=== PATIENT | male | born 1960 | race African-American/Black ===

== ENCOUNTER 2016-10-18 11:02 | Inpatient (IN) | payer OTHER ==
[2016-10-18 11:29] VITALS: BMI 35.1
--- NOTE | 2016-10-18 12:39 | HP ---
COWS - Scale Resting Pulse: 0= [place] 80 or Below Sweatin=Flushed/Facial Moisture Restless Observation: 0= Sits Still Pupil Size: 0= Normal to Room Light Bone or Joint Aches: 2= Severe Diffuse Aches Runny Nose/ Eye Tearin= Runny Nose/Eyes GI Upset > 30mins: 2= Nausea/Diarrhea Tremor Observation: 2= Slight Tremor Visible Yawning Observation: 2= >3x During Session Anxiety or Irritability: 2=Irritable/Anxious Goose Flesh Skin: 3=Piloerection COWS Score: 17 Admission ROS S - HPI Chief Complaint: I am here to detox. Allergies/Adverse Reactions: Allergies Allergy/AdvReac Type Severity Reaction Status Date / Time No Known Allergies Allergy Verified 10/18/16 11:45 History of Present Illness: pt is a 56yr old male with a history of heroin dependence seeking detox for treatment. Exam Limitations: No Limitations - Ebola screening Have you traveled outside of the country in the last 21 days: No Have you had contact with anyone from an Ebola affected area: No Have you been sick,other than usual withdrawal symptoms: No Do you have a fever: No - Review of Systems Constitutional: Chills, Night Sweats, Changes in sleep EENT: reports: No Symptoms Reported Respiratory: reports: No Symptoms reported Cardiac: reports: No Symptoms Reported GI: reports: Constipated, Poor Fluid Intake : reports: No Symptoms Reported Musculoskeletal: reports: Joint Pain (shoulder pain/arthritis) Integumentary: reports: Flushing, Sweating Neuro: reports: Tingling Endocrine: reports: Excessive Sweating, Flushing, Intolerance to Cold, Intolerance to Heat Hematology: reports: No Symptoms Reported Psychiatric: reports: Judgement Intact, Mood/Affect Appropiate, Orientated x3, Agitated, Anxious Other Systems: Reviewed and Negative Patient History - Patient Medical History Hx Anemia: No Hx Asthma: Yes Hx Chronic Obstructive Pulmonary Disease (COPD): No Hx Cancer: No Hx Cardiac Disorders: No Hx Congestive Heart Failure: No Hx Hypertension: Yes Hx Hypercholesterolemia: No Hx Pacemaker: No HX Cerebrovascular Accident: No Hx Seizures: No Hx Dementia: No Hx Diabetes: No Hx Gastrointestinal Disorders: No Hx Liver Disease: No Hx Genitourinary Disorders: Yes (UTI on medication) Hx Sexually Transmitted Disorders: No Hx Renal Disease (ESRD): No Hx Thyroid Disease: No Hx Human Immunodeficiency Virus (HIV): No (negative) Hx Hepatitis C: No (negative) Hx Depression: No Hx Suicide Attempt: No (denies) Hx Bipolar Disorder: No Hx Schizophrenia: No - Patient Surgical History Past Surgical History: Yes Hx Neurologic Surgery: No Hx Cataract Extraction: No Hx Cardiac Surgery: No Hx Lung Surgery: No Hx Breast Surgery: No Hx Breast Biopsy: No Hx Abdominal Surgery: No Hx Appendectomy: No Hx Cholecystectomy: No Hx Genitourinary Surgery: No Hx Section: No Hx Orthopedic Surgery: (right inguinal hernia repair in 2009) Hx Hysterectomy: No Anesthesia Reaction: No - PPD History Previous Implant?: Yes Documented Results: Negative w/o proof PPD to be Administered?: Yes - Reproductive History Patient is a Female of Child Bearing Age (11 -55 yrs old): No - Smoking Cessation Smoking history: Current every day smoker Have you smoked in the past 12 months: Yes Aproximately how many cigarettes per day: 4 Hx Chewing Tobacco Use: No Initiated information on smoking cessation: Yes 'Breaking Loose' booklet given: 10/18/16 - Substance & Tx. History Hx Alcohol Use: No Hx Substance Use: Yes Substance Use Type: Cocaine, Heroin Hx Substance Use Treatment: Yes (last detox 2007 [facility]) - Substances Abused Heroin Route: Inhalation Frequency: Daily Amount used: 10 bags Age of first use: 24 Date of Last Use: 10/17/16 Crack Route: Smoking Frequency: Daily Amount used: $100 Age of first use: 24 Date of Last Use: 10/17/16 Family Disease History - Family Disease History Family Disease History: Heart Disease: Mother Admission Physical Exam S - Vital Signs Vital Signs: Vital Signs - 24 hr 10/18/16 11:27 Temperature 97.5 F L Pulse Rate 68 Respiratory 18 Rate Blood Pressure 154/96 - Physical General Appearance: Yes: Nourished, Appropriately Dressed, Mild Distress, Moderate Distress HEENTM: Yes: Hearing grossly Normal, Normal Voice, Nasal Congestion, Rhinorrhea Respiratory: Yes: Lungs Clear, Normal Breath Sounds, No Respiratory Distress Neck: Yes: No masses,lesions,Nodules Breast: Yes: Within Normal Limits Cardiology: Yes: Regular Rhythm, Regular Rate, S1, S2 Abdominal: Yes: Normal Bowel Sounds, Non Tender, Soft Genitourinary: Yes: Within Normal Limits Back: Yes: Normal Inspection Musculoskeletal: Yes: full range of Motion, Gait Steady, Back pain Extremities: Yes: Normal Capillary Refill, Normal Inspection, Non-Tender, Tremors Neurological: Yes: Fully Oriented, Alert, Normal Response Integumentary: Yes: Normal Color Lymphatic: Yes: Within Normal Limits - Diagnostic (1) Opioid dependence with withdrawal Current Visit: Yes Status: Chronic (2) Cocaine dependence, uncomplicated Current Visit: Yes Status: Chronic (3) Nicotine dependence Current Visit: Yes Status: Chronic Qualifiers: Nicotine product type: cigarettes Substance use status: uncomplicated Qualified Code(s): F17.210 - Nicotine dependence, cigarettes, uncomplicated (4) Hypertension Current Visit: Yes Status: Chronic Qualifiers: Hypertension type: essential hypertension Qualified Code(s): I10 - Essential (primary) hypertension (5) UTI (urinary tract infection) Current Visit: Yes Status: Acute Qualifiers: Urinary tract infection type: acute cystitis Hematuria presence: without hematuria Qualified Code(s): N30.00 - Acute cystitis without hematuria (6) H/O hernia repair Current Visit: No Status: Chronic Cleared for Admission [facility] - Detox or Rehab [facility] Level of Care: Medically Managed Detox Regimen/Protocol: Methadone [facility] Breath Alcohol Content Breath Alcohol Content: 0 Urine Drug Screen - Results Drug Screen Negative: No Urine Drug Screen Results: LIZZY-Cocaine, OPI-Opiates
[2016-10-18] MEDS ORDERED: MENTHOL/PHENOL 1 EACH UD MM PRN (12:40)
[2016-10-18] MEDS ORDERED: MAG HYDROX/AL HYDROX/SIMETH 30 ML UNIT-DOSE CUP PO PRN (12:40)
[2016-10-18] MEDS ORDERED: guaiFENesin/D-METHORPHAN HB 10 ML UNIT-DOSE CUPS PO PRN (12:40)
[2016-10-18] MEDS ORDERED: LOPERAMIDE HCL 2 MG CAPSULE PO PRN (12:40)
[2016-10-18] MEDS ORDERED: MAGNESIUM CITRATE 300 ML BOTTLE PO PRN (12:40)
[2016-10-18] MEDS ORDERED: ACETAMINOPHEN 325 MG TABLET (FP) PO PRN (12:40)
[2016-10-18] MEDS ORDERED: P-EPHED 60MG/TRIPROLIDI 2.5MG TABLET PO PRN (12:40)
[2016-10-18] MEDS ORDERED: MAGNESIUM HYDROX 2400MG/30ML ORAL SUSPENSION 30 ML CUP PO PRN (12:40)
[2016-10-18] MEDS ORDERED: NICOTINE POLACRILEX 4 MG GUM BC PRN (12:40)
[2016-10-18] MEDS ORDERED: IBUPROFEN 400 MG TABLET (FP) PO PRN (12:40)
[2016-10-18] MEDS: diazePAM 5 MG TABLET PO PRN ×2 (13:26→17:52)
[2016-10-18] MEDS ORDERED: METHADONE HCL 10 MG TABLET (FOR DETOX USE ONLY) PO ONE ×2 (13:30→23:00)
[2016-10-18 15:50] LABS: HIV 1 & 2 AB NEGATIVE; HIV 1 AGp24 NEGATIVE
[2016-10-18 18:10] LABS: MCH 28.8 pg (25.7-33.7); MCHC 33.3 g/dl (32.0-35.9); MEAN CELL VOLUME 86.3 fl (80-96); MEAN PLT VOLUME 10.3 fl (7.5-11.1); PLATELET COUNT 292 K/MM3 (134-434); RDW 12.9 % (11.9-15.9); WHITE BLOOD COUNT 7.3 K/mm3 (4.0-10.0)
[2016-10-18 18:22] LABS: ALBUMIN 3.5 g/dl (3.4-5.0); ALK PHOS 98 U/L (45-117); ANION GAP 10 (8-16); BILIRUBIN,TOTAL 0.9 mg/dL (0.2-1.0); CALCIUM 9.2 mg/dL (8.5-10.1); CO2 28 mmol/L (21-32); CREATININE 1.5 mg/dL (0.7-1.3); GLUCOSE,RANDOM 82 mg/dL (74-106); SGOT/AST 18 U/L (15-37); SGPT/ALT 25 U/L (12-78); TOT PROT 6.9 g/dl (6.4-8.2)
[2016-10-18] MEDS: METOPROLOL TARTRATE 50 MG TABLET (FP) PO SCH (21:36)
[2016-10-18] MEDS: PATIENT'S OWN MEDICATION (NON-FORMULARY) (Diclofenac Sodium/Misoprostol [Diclofenac-Misopr PO SCH (22:07)
[2016-10-18] MEDS: THIAMINE HCL 100 MG TABLET (FP) PO SCH (22:08)
[2016-10-18] MEDS: PATIENT'S OWN MEDICATION (NON-FORMULARY) (Nitrofurantoin Monohyd/M-Cryst 100 MG) PO SCH (22:08)
[2016-10-18] MEDS: CLOTRIMAZOLE 1% CREAM 15 GM TUBE TP SCH (22:09)
[2016-10-18 22:37] LABS: URINE APPEARANCE CLEAR; URINE BILIRUBIN NEGATIVE (NEGATIVE); URINE BLOOD NEGATIVE (NEGATIVE); URINE COLOR YELLOW; URINE GLUCOSE (UA) NEGATIVE (NEGATIVE); URINE KETONE NEGATIVE (NEGATIVE); URINE LEUK ESTERASE TRACE (NEGATIVE); URINE NITRITE NEGATIVE (NEGATIVE); URINE PROTEIN NEGATIVE (NEGATIVE); URINE UROBILINOGEN NEGATIVE mg/dL (0.2-1.0)
[2016-10-18 23:09] LABS: URINE HYALINE CAST 1 /lpf; URINE MUCUS RARE; URINE RBC 5 /hpf (0-3); URINE WBC 8 /hpf (3-5)
[2016-10-18] MEDS: POTASSIUM CHLORIDE TABS 20 MEQ TABLET.ER (FP) PO SCH (23:52)
[2016-10-19] MEDS: diazePAM 5 MG TABLET PO PRN ×3 (05:55→22:04)
[2016-10-19] MEDS ORDERED: PATIENT'S OWN MEDICATION (NON-FORMULARY) (Losartan/Hydrochlorothiazide [Losartan-Hctz 100- PO SCH (10:00)
[2016-10-19] MEDS ORDERED: METHADONE HCL 10 MG TABLET (FOR DETOX USE ONLY) PO ONE (10:00)
[2016-10-19] MEDS: PATIENT'S OWN MEDICATION (NON-FORMULARY) (Diclofenac Sodium/Misoprostol [Diclofenac-Misopr PO SCH ×2 (10:04→22:05)
[2016-10-19] MEDS: LOSARTAN POTASSIUM 50 MG TABLET (FP) PO SCH (10:04)
[2016-10-19] MEDS: PATIENT'S OWN MEDICATION (NON-FORMULARY) (Nitrofurantoin Monohyd/M-Cryst 100 MG) PO SCH ×2 (10:04→22:05)
[2016-10-19] MEDS: METOPROLOL TARTRATE 50 MG TABLET (FP) PO SCH ×2 (10:05→22:05)
[2016-10-19] MEDS: POTASSIUM CHLORIDE TABS 20 MEQ TABLET.ER (FP) PO SCH ×2 (10:05→22:05)
[2016-10-19] MEDS: PRENATAL VITAMINS W/ FOLIC ACID TABLET (FP) PO SCH (10:06)
[2016-10-19] MEDS: HYDROCHLOROTHIAZIDE 25 MG TABLET (FP) PO SCH (10:06)
[2016-10-19] MEDS: amLODIPine BESYLATE 10 MG TABLET (FP) PO SCH (10:06)
[2016-10-19] MEDS: CLOTRIMAZOLE 1% CREAM 15 GM TUBE TP SCH ×2 (10:08→22:06)
[2016-10-19] MEDS: NICOTINE 14 MG/24 HOURS TOPICAL PATCH TD SCH (10:08)
--- NOTE | 2016-10-19 10:25 | EKG ---
Test Reason : Blood Pressure : / mmHG Vent. Rate : 064 BPM Atrial Rate : 064 BPM P-R Int : 188 ms QRS Dur : 092 ms QT Int : 394 ms P-R-T Axes : 066 020 027 degrees QTc Int : 406 ms NORMAL SINUS RHYTHM POSSIBLE LEFT ATRIAL ENLARGEMENT BORDERLINE ECG NO PREVIOUS ECGS AVAILABLE Confirmed by APARNA LU, SYDNEE ([id number]) on 10/19/2016 10:24:41 AM Referred By: Anthony Lopez Confirmed By:SYDNEE BRAUN MD
[2016-10-19] MEDS ORDERED: LIDOCAINE 5% TOPICAL PATCH TP ONE (11:09)
--- NOTE | 2016-10-19 12:23 | PN ---
[facility] COWS - Scale Resting Pulse: 0= [place] 80 or Below Sweatin= Chills/Flushing Restless Observation: 1= Difficult to Sit Still Pupil Size: 0= Normal to Room Light Bone or Joint Aches: 2= Severe Diffuse Aches Runny Nose/ Eye Tearin= Nasal Congestion GI Upset > 30mins: 2= Nausea/Diarrhea Tremor Observation of Outstretched Hands: 2= Slight Tremor Visible Yawning Observation: 1= 1-2x During Session Anxiety or Irritability: 2=Irritable/Anxious Goose Flesh Skin: 3=Piloerection COWS Score: 15 [facility] Progress Note (SOAP) Subjective: Tremors, Body Aches, H/A, Interrupted sleep, Diarrhea. Objective: PT. A & O X 3, OBSERVED AMBULATING ON UNIT. NO ACUTE DISTRESS. PT. DENIES CHEST PAIN. 10/19/16 12:21 Vital Signs Temperature 96.7 F L 10/19/16 10:02 Pulse Rate 76 10/19/16 10:02 Respiratory Rate 18 10/19/16 10:02 Blood Pressure 149/70 10/19/16 10:02 O2 Sat by Pulse Oximetry (%) Laboratory Tests 10/18/16 10/18/16 10/18/16 12:30 14:00 14:00 WBC 7.3 RBC 4.34 Hgb 12.5 Hct 37.4 MCV 86.3 MCH 28.8 MCHC 33.3 RDW 12.9 Plt Count 292 MPV 10.3 Sodium 142 Potassium 3.4 L Chloride 104 Carbon Dioxide 28 Anion Gap 10 BUN 22 H Creatinine 1.5 H Creat Clearance w eGFR 48.77 Random Glucose 82 Calcium 9.2 Total Bilirubin 0.9 AST 18 ALT 25 Alkaline Phosphatase 98 Total Protein 6.9 Albumin 3.5 Urine Color Urine Appearance Urine pH Ur Specific [place] Urine Protein Urine Glucose (UA) Urine Ketones Urine Blood Urine Nitrite Urine Bilirubin Urine Urobilinogen Urine RBC Urine WBC Hyaline Casts Urine Mucus RPR Titer HIV 1&2 Antibody Screen Negative HIV P24 Antigen Negative 10/18/16 10/18/16 14:00 21:15 WBC RBC Hgb Hct MCV MCH MCHC RDW Plt Count MPV Sodium Potassium Chloride Carbon Dioxide Anion Gap BUN Creatinine Creat Clearance w eGFR Random Glucose Calcium Total Bilirubin AST ALT Alkaline Phosphatase Total Protein Albumin Urine Color Yellow Urine Appearance Clear Urine pH 5.0 Ur Specific [place] 1.025 Urine Protein Negative Urine Glucose (UA) Negative Urine Ketones Negative Urine Blood Negative Urine Nitrite Negative Urine Bilirubin Negative Urine Urobilinogen Negative Urine RBC 5 Urine WBC 8 Hyaline Casts 1 Urine Mucus Rare RPR Titer Nonreactive HIV 1&2 Antibody Screen HIV P24 Antigen LABS NOTED. Assessment: 10/19/16 12:22 WITHDRAWAL SYMPTOMS. Plan: CONTINUE DETOX. REPEAT UA FOR ABNORMAL VALUES (RBC, WBC). REPEAT CMP ON 10/21/2016 FOR ABNORMAL ADMISSION VALUES. D/C MAGNESIUM-CONTAINING MEDS. INCREASE DAILY PO FLUID INTAKE. CONTINUE TO MONITOR BP.
[2016-10-19] MEDS: CYCLOBENZAPRINE HCL 10 MG TABLET (FP) PO PRN (22:05)
[2016-10-19] MEDS: THIAMINE HCL 100 MG TABLET (FP) PO SCH (22:05)
[2016-10-19] MEDS: LIDOCAINE PATCH REMOVAL MC SCH (22:07)
[2016-10-20] MEDS: diazePAM 5 MG TABLET PO PRN ×3 (06:04→22:17)
[2016-10-20] MEDS: CYCLOBENZAPRINE HCL 10 MG TABLET (FP) PO PRN (06:04)
--- NOTE | 2016-10-20 09:15 | PN ---
[facility] CIWA - CIWA Score Nausea/Vomitin-No Nausea/No Vomiting Muscle Tremors: 3 Anxiety: 5 Agitation: 4-Moderately Restless Paroxysmal Sweats: 3 Orientation: 0-Oriented Tacttile Disturbances: 2-Mild Itch/Numbness/Burn Auditory Disturbances: 0-None Visual Disturbances: 0-None Headache: 0-None Present CIWA-Ar Total Score: 17 [facility] Progress Note (SOAP) Subjective: Anxious, Stomach cramping, sweating. Pt. reporting right-sided lower abdominal discomfort with sensations of burning , pain when urinating X approx. 1 year. Pt. also reporting intermittent hematuria during that time. Pt. has history of Inguinal Hernia surgical repair ( 2009). Pt. to be sent to [facility] for further evaluation. SEE FOLLOWING [facility] PROGRESS NOTE. Objective: PT. A & O X 3, OBSERVED AMBULATING ON UNIT. NO ACUTE DISTRESS. PT. DENIES CHEST PAIN. 10/20/16 09:09 Vital Signs Temperature 98 F 10/20/16 05:00 Pulse Rate 75 10/20/16 05:00 Respiratory Rate 20 10/20/16 05:00 Blood Pressure 143/85 10/20/16 05:00 O2 Sat by Pulse Oximetry (%) Laboratory Tests 10/18/16 10/18/16 10/18/16 12:30 14:00 14:00 WBC 7.3 RBC 4.34 Hgb 12.5 Hct 37.4 MCV 86.3 MCH 28.8 MCHC 33.3 RDW 12.9 Plt Count 292 MPV 10.3 Sodium 142 Potassium 3.4 L Chloride 104 Carbon Dioxide 28 Anion Gap 10 BUN 22 H Creatinine 1.5 H Creat Clearance w eGFR 48.77 Random Glucose 82 Calcium 9.2 Total Bilirubin 0.9 AST 18 ALT 25 Alkaline Phosphatase 98 Total Protein 6.9 Albumin 3.5 Urine Color Urine Appearance Urine pH Ur Specific [place] Urine Protein Urine Glucose (UA) Urine Ketones Urine Blood Urine Nitrite Urine Bilirubin Urine Urobilinogen Urine RBC Urine WBC Hyaline Casts Urine Mucus RPR Titer HIV 1&2 Antibody Screen Negative HIV P24 Antigen Negative 10/18/16 10/18/16 14:00 21:15 WBC RBC Hgb Hct MCV MCH MCHC RDW Plt Count MPV Sodium Potassium Chloride Carbon Dioxide Anion Gap BUN Creatinine Creat Clearance w eGFR Random Glucose Calcium Total Bilirubin AST ALT Alkaline Phosphatase Total Protein Albumin Urine Color Yellow Urine Appearance Clear Urine pH 5.0 Ur Specific [place] 1.025 Urine Protein Negative Urine Glucose (UA) Negative Urine Ketones Negative Urine Blood Negative Urine Nitrite Negative Urine Bilirubin Negative Urine Urobilinogen Negative Urine RBC 5 Urine WBC 8 Hyaline Casts 1 Urine Mucus Rare RPR Titer Nonreactive HIV 1&2 Antibody Screen HIV P24 Antigen LABS NOTED. RESULTS OF REPEAT UA PENDING. 10/20/16 09:10 Assessment: 10/20/16 09:10 WITHDRAWAL SYMPTOMS. HYPOKALEMIA. DYSURIA, HEMATURIA. 10/20/16 09:10 Plan: CONTINUE DETOX.
[2016-10-20] MEDS: PRENATAL VITAMINS W/ FOLIC ACID TABLET (FP) PO SCH (09:21)
[2016-10-20] MEDS: PATIENT'S OWN MEDICATION (NON-FORMULARY) (Diclofenac Sodium/Misoprostol [Diclofenac-Misopr PO SCH ×2 (09:21→22:12)
[2016-10-20] MEDS: PATIENT'S OWN MEDICATION (NON-FORMULARY) (Nitrofurantoin Monohyd/M-Cryst 100 MG) PO SCH ×2 (09:21→22:13)
[2016-10-20] MEDS: amLODIPine BESYLATE 10 MG TABLET (FP) PO SCH (09:22)
[2016-10-20] MEDS: LOSARTAN POTASSIUM 50 MG TABLET (FP) PO SCH (09:22)
[2016-10-20] MEDS: HYDROCHLOROTHIAZIDE 25 MG TABLET (FP) PO SCH (09:22)
[2016-10-20] MEDS: METOPROLOL TARTRATE 50 MG TABLET (FP) PO SCH ×2 (09:22→22:12)
--- NOTE | 2016-10-20 09:24 | PN ---
[facility] Progress Note Note: Pt. reporting right-sided lower abdominal discomfort with sensations of burning , pain when urinating X approx. 1 year. Pt. also reporting intermittent hematuria during that time. Pt. has history of Inguinal Hernia surgical repair ( 2009). Pt. himself requesting to go to ER. Small mass noted upon visual inspection of right lower abdominal / inguinal area. Pt. was prescribed Nitrofuratoin (Macrobid), 100 mg PO BID by [facility] prior to admission to Detox (and continued while admitted for Detox) for possible UTI. VS: BP: 134/89; P: 73; T: 97.9; RR: 18. Report given to Dr. Ramirez at [facility]. Pt. to be taken via ambulance to [facility] for further evaluation. Cliff Wu NP
[2016-10-20] MEDS: NICOTINE 14 MG/24 HOURS TOPICAL PATCH TD SCH (09:25)
[2016-10-20] MEDS: POTASSIUM CHLORIDE TABS 20 MEQ TABLET.ER (FP) PO SCH ×2 (09:26→22:12)
[2016-10-20] MEDS: CLOTRIMAZOLE 1% CREAM 15 GM TUBE TP SCH ×2 (09:27→22:50)
[2016-10-20] MEDS ORDERED: METHADONE HCL 5 MG TABLET (FOR DETOX USE ONLY) PO ONE (10:00)
[2016-10-20] MEDS: THIAMINE HCL 100 MG TABLET (FP) PO SCH (22:12)
[2016-10-20] MEDS: LIDOCAINE PATCH REMOVAL MC SCH (22:48)
[2016-10-21] MEDS: diazePAM 5 MG TABLET PO PRN (05:33)
[2016-10-21] MEDS: hydrOXYzine PAMOATE 50 MG CAPSULE (FP) PO PRN (05:34)
[2016-10-21] MEDS: PRENATAL VITAMINS W/ FOLIC ACID TABLET (FP) PO SCH (09:26)
[2016-10-21] MEDS: POTASSIUM CHLORIDE TABS 20 MEQ TABLET.ER (FP) PO SCH ×2 (09:26→22:03)
[2016-10-21] MEDS: HYDROCHLOROTHIAZIDE 25 MG TABLET (FP) PO SCH (09:27)
[2016-10-21] MEDS: amLODIPine BESYLATE 10 MG TABLET (FP) PO SCH (09:27)
[2016-10-21] MEDS: LOSARTAN POTASSIUM 50 MG TABLET (FP) PO SCH (09:27)
[2016-10-21] MEDS: METOPROLOL TARTRATE 50 MG TABLET (FP) PO SCH ×2 (09:27→22:03)
[2016-10-21] MEDS: PATIENT'S OWN MEDICATION (NON-FORMULARY) (Diclofenac Sodium/Misoprostol [Diclofenac-Misopr PO SCH ×2 (09:28→22:04)
[2016-10-21] MEDS: CLOTRIMAZOLE 1% CREAM 15 GM TUBE TP SCH ×2 (09:28→22:04)
[2016-10-21] MEDS: PATIENT'S OWN MEDICATION (NON-FORMULARY) (Nitrofurantoin Monohyd/M-Cryst 100 MG) PO SCH ×2 (09:33→22:03)
[2016-10-21] MEDS: NICOTINE 14 MG/24 HOURS TOPICAL PATCH TD SCH (09:35)
[2016-10-21 10:00] LABS: CALCIUM 9.7 mg/dL (8.5-10.1)
[2016-10-21] MEDS ORDERED: METHADONE HCL 5 MG TABLET (FOR DETOX USE ONLY) PO ONE (10:00)
[2016-10-21] MEDS: AMMONIUM LACTATE 12% LOTION 225 GM BOTTLE TP SCH ×2 (10:26→22:38)
[2016-10-21 10:27] LABS: ALBUMIN 3.3 g/dl (3.4-5.0); ALK PHOS 90 U/L (45-117); ANION GAP 5 (8-16); BILIRUBIN,TOTAL 0.8 mg/dL (0.2-1.0); CO2 29 mmol/L (21-32); CREATININE 1.2 mg/dL (0.7-1.3); GLUCOSE,RANDOM 81 mg/dL (74-106); SGOT/AST 21 U/L (15-37); SGPT/ALT 29 U/L (12-78); TOT PROT 6.3 g/dl (6.4-8.2)
--- NOTE | 2016-10-21 12:22 | PN ---
S Progress Note (SOAP) Subjective: Interrupted sleep, Anxious, Sweating, Tremors. Objective: PT. A & O X 3, OBSERVED AMBULATING ON UNIT. NO ACUTE DISTRESS. PT. DENIES CHEST PAIN. PT. RETURNED FROM [facility] ER YESTERDAY (10/20/2016). PT. EVALUATED FOR LOWER ABDOMINAL PAIN AND DYSURIA. PT. DID NOT WISH TO REMAIN IN ER TO HAVE ABDOMINAL CT SCAN PERFORMED. PT. ADVISED BY ER MEDICAL PROVIDER TO FOLLOW-UP FOR CONDITION WITH ARTIST SUSPECT AFTER DISCHARGE FROM DETOX FOR FURTHER EVALUATION. 10/21/16 12:21 Vital Signs Temperature 969.5 F H 10/21/16 11:15 Pulse Rate 82 10/21/16 11:15 Respiratory Rate 20 10/21/16 11:15 Blood Pressure 150/101 10/21/16 11:15 O2 Sat by Pulse Oximetry (%) Laboratory Tests 10/18/16 10/18/16 10/18/16 12:30 14:00 14:00 WBC 7.3 RBC 4.34 Hgb 12.5 Hct 37.4 MCV 86.3 MCH 28.8 MCHC 33.3 RDW 12.9 Plt Count 292 MPV 10.3 Sodium 142 Potassium 3.4 L Chloride 104 Carbon Dioxide 28 Anion Gap 10 BUN 22 H Creatinine 1.5 H Creat Clearance w eGFR 48.77 Random Glucose 82 Calcium 9.2 Total Bilirubin 0.9 AST 18 ALT 25 Alkaline Phosphatase 98 Total Protein 6.9 Albumin 3.5 Urine Color Urine Appearance Urine pH Ur Specific [place] Urine Protein Urine Glucose (UA) Urine Ketones Urine Blood Urine Nitrite Urine Bilirubin Urine Urobilinogen Urine RBC Urine WBC Hyaline Casts Urine Mucus RPR Titer HIV 1&2 Antibody Screen Negative HIV P24 Antigen Negative 10/18/16 10/18/16 10/21/16 14:00 21:15 07:50 WBC RBC Hgb Hct MCV MCH MCHC RDW Plt Count MPV Sodium 139 Potassium 4.1 Chloride 105 Carbon Dioxide 29 Anion Gap 5 L BUN 20 H Creatinine 1.2 Creat Clearance w eGFR > 60 Random Glucose 81 Calcium 9.7 Total Bilirubin 0.8 D AST 21 D ALT 29 D Alkaline Phosphatase 90 Total Protein 6.3 L Albumin 3.3 L Urine Color Yellow Urine Appearance Clear Urine pH 5.0 Ur Specific [place] 1.025 Urine Protein Negative Urine Glucose (UA) Negative Urine Ketones Negative Urine Blood Negative Urine Nitrite Negative Urine Bilirubin Negative Urine Urobilinogen Negative Urine RBC 5 Urine WBC 8 Hyaline Casts 1 Urine Mucus Rare RPR Titer Nonreactive HIV 1&2 Antibody Screen HIV P24 Antigen LABS NOTED. RESULTS OF REPEAT UA AND REPEAT CMP NOTED. 10/21/16 12:24 10/21/16 12:24 Assessment: 10/21/16 12:22 WITHDRAWAL SYMPTOMS. Plan: CONTINUE DETOX. PATIENT ADVISED TO FOLLOW-UP WITH ARTIST SUSPECT DR. MENDOZA ([facility], [place] AFTER DISCHARGE FROM DETOX FOR ABDOMINAL DISCOMFORT AND FOR HISTORY OF HERNIA REPAIR.
[2016-10-21] MEDS: LIDOCAINE 5% TOPICAL PATCH TP SCH (15:20)
[2016-10-21] MEDS: THIAMINE HCL 100 MG TABLET (FP) PO SCH (22:03)
[2016-10-21] MEDS: diphenhydrAMINE HCL 50 MG CAPSULE PO PRN (22:05)
[2016-10-21] MEDS: LIDOCAINE PATCH REMOVAL MC SCH ×2 (22:38)
[2016-10-22] MEDS: hydrOXYzine PAMOATE 50 MG CAPSULE (FP) PO PRN (05:59)
[2016-10-22] MEDS ORDERED: METHADONE HCL 10 MG TABLET (FOR DETOX USE ONLY) PO ONE (10:00)
[2016-10-22] MEDS: POTASSIUM CHLORIDE TABS 20 MEQ TABLET.ER (FP) PO SCH ×2 (10:23→22:11)
[2016-10-22] MEDS: METOPROLOL TARTRATE 50 MG TABLET (FP) PO SCH ×2 (10:23→22:11)
[2016-10-22] MEDS: amLODIPine BESYLATE 10 MG TABLET (FP) PO SCH (10:23)
[2016-10-22] MEDS: PRENATAL VITAMINS W/ FOLIC ACID TABLET (FP) PO SCH (10:23)
[2016-10-22] MEDS: PATIENT'S OWN MEDICATION (NON-FORMULARY) (Diclofenac Sodium/Misoprostol [Diclofenac-Misopr PO SCH ×2 (10:24→22:14)
[2016-10-22] MEDS: LOSARTAN POTASSIUM 50 MG TABLET (FP) PO SCH (10:24)
[2016-10-22] MEDS: PATIENT'S OWN MEDICATION (NON-FORMULARY) (Nitrofurantoin Monohyd/M-Cryst 100 MG) PO SCH ×2 (10:24→22:12)
[2016-10-22] MEDS: LIDOCAINE 5% TOPICAL PATCH TP SCH (10:25)
[2016-10-22] MEDS: CLOTRIMAZOLE 1% CREAM 15 GM TUBE TP SCH ×2 (10:25→22:13)
[2016-10-22] MEDS: HYDROCHLOROTHIAZIDE 25 MG TABLET (FP) PO SCH (10:25)
[2016-10-22] MEDS: AMMONIUM LACTATE 12% LOTION 225 GM BOTTLE TP SCH ×2 (10:26→22:13)
[2016-10-22] MEDS: NICOTINE 14 MG/24 HOURS TOPICAL PATCH TD SCH (10:26)
--- NOTE | 2016-10-22 15:31 | PN ---
[facility] Progress Note (SOAP) Subjective: Sweating. Objective: PT. A & O X 3, OBSERVED AMBULATING ON UNIT. NO ACUTE DISTRESS. PT. DENIES CHEST PAIN. 10/22/16 15:28 Vital Signs Temperature 97.4 F L 10/22/16 15:13 Pulse Rate 79 10/22/16 15:13 Respiratory Rate 20 10/22/16 15:13 Blood Pressure 138/94 10/22/16 15:13 O2 Sat by Pulse Oximetry (%) Laboratory Tests 10/18/16 10/18/16 10/18/16 12:30 14:00 14:00 WBC 7.3 RBC 4.34 Hgb 12.5 Hct 37.4 MCV 86.3 MCH 28.8 MCHC 33.3 RDW 12.9 Plt Count 292 MPV 10.3 Sodium 142 Potassium 3.4 L Chloride 104 Carbon Dioxide 28 Anion Gap 10 BUN 22 H Creatinine 1.5 H Creat Clearance w eGFR 48.77 Random Glucose 82 Calcium 9.2 Total Bilirubin 0.9 AST 18 ALT 25 Alkaline Phosphatase 98 Total Protein 6.9 Albumin 3.5 Urine Color Urine Appearance Urine pH Ur Specific [place] Urine Protein Urine Glucose (UA) Urine Ketones Urine Blood Urine Nitrite Urine Bilirubin Urine Urobilinogen Urine RBC Urine WBC Hyaline Casts Urine Mucus RPR Titer HIV 1&2 Antibody Screen Negative HIV P24 Antigen Negative 10/18/16 10/18/16 10/21/16 14:00 21:15 07:50 WBC RBC Hgb Hct MCV MCH MCHC RDW Plt Count MPV Sodium 139 Potassium 4.1 Chloride 105 Carbon Dioxide 29 Anion Gap 5 L BUN 20 H Creatinine 1.2 Creat Clearance w eGFR > 60 Random Glucose 81 Calcium 9.7 Total Bilirubin 0.8 D AST 21 D ALT 29 D Alkaline Phosphatase 90 Total Protein 6.3 L Albumin 3.3 L Urine Color Yellow Urine Appearance Clear Urine pH 5.0 Ur Specific [place] 1.025 Urine Protein Negative Urine Glucose (UA) Negative Urine Ketones Negative Urine Blood Negative Urine Nitrite Negative Urine Bilirubin Negative Urine Urobilinogen Negative Urine RBC 5 Urine WBC 8 Hyaline Casts 1 Urine Mucus Rare RPR Titer Nonreactive HIV 1&2 Antibody Screen HIV P24 Antigen LABS NOTED. 10/22/16 15:30 Assessment: 10/22/16 15:28 WITHDRAWAL SYMPTOMS. Plan: CONTINUE DETOX. INCREASE DAILY PO FLUID INTAKE.
[2016-10-22] MEDS: THIAMINE HCL 100 MG TABLET (FP) PO SCH (22:11)
[2016-10-22] MEDS: diphenhydrAMINE HCL 50 MG CAPSULE PO PRN (22:11)
[2016-10-22] MEDS: LIDOCAINE PATCH REMOVAL MC SCH ×2 (22:13→22:17)
[2016-10-23] MEDS ORDERED: METHADONE HCL 5 MG TABLET (FOR DETOX USE ONLY) PO ONE (06:00)
[2016-10-23 07:14] VITALS: BP 134/86; PULSE 70; TEMP 97.5
--- NOTE | 2016-10-23 15:02 | DS ---
[facility] Detox Discharge Summary Admission Date: 10/18/16 Discharge Date: 10/23/16 - History Present History: Cocaine Dependence, Opioid Dependence Pertinent Past History: Asthma HTN - Physical Exam Results Vital Signs: Vital Signs Temperature 97.5 F L 10/23/16 06:00 Pulse Rate 70 10/23/16 06:00 Respiratory Rate 18 10/23/16 06:00 Blood Pressure 134/86 10/23/16 06:00 O2 Sat by Pulse Oximetry (%) Pertinent Admission Physical Exam Findings: Withdrawal symptoms Laboratory Tests 10/18/16 10/18/16 10/18/16 12:30 14:00 14:00 WBC 7.3 RBC 4.34 Hgb 12.5 Hct 37.4 MCV 86.3 MCH 28.8 MCHC 33.3 RDW 12.9 Plt Count 292 MPV 10.3 Sodium 142 Potassium 3.4 L Chloride 104 Carbon Dioxide 28 Anion Gap 10 BUN 22 H Creatinine 1.5 H Creat Clearance w eGFR 48.77 Random Glucose 82 Calcium 9.2 Total Bilirubin 0.9 AST 18 ALT 25 Alkaline Phosphatase 98 Total Protein 6.9 Albumin 3.5 Urine Color Urine Appearance Urine pH Ur Specific [place] Urine Protein Urine Glucose (UA) Urine Ketones Urine Blood Urine Nitrite Urine Bilirubin Urine Urobilinogen Urine RBC Urine WBC Hyaline Casts Urine Mucus RPR Titer HIV 1&2 Antibody Screen Negative HIV P24 Antigen Negative 10/18/16 10/18/16 10/21/16 14:00 21:15 07:50 WBC RBC Hgb Hct MCV MCH MCHC RDW Plt Count MPV Sodium 139 Potassium 4.1 Chloride 105 Carbon Dioxide 29 Anion Gap 5 L BUN 20 H Creatinine 1.2 Creat Clearance w eGFR > 60 Random Glucose 81 Calcium 9.7 Total Bilirubin 0.8 D AST 21 D ALT 29 D Alkaline Phosphatase 90 Total Protein 6.3 L Albumin 3.3 L Urine Color Yellow Urine Appearance Clear Urine pH 5.[address] [place] 1.025 Urine Protein Negative Urine Glucose (UA) Negative Urine Ketones Negative Urine Blood Negative Urine Nitrite Negative Urine Bilirubin Negative Urine Urobilinogen Negative Urine RBC 5 Urine WBC 8 Hyaline Casts 1 Urine Mucus Rare RPR Titer Nonreactive HIV 1&2 Antibody Screen HIV P24 Antigen Labs noted - Treatment Hospital Course: Detox Protocol Followed, Detoxed Safely, Responded well, Discharged Condition Good - Medication Discharge Medications: Ambulatory Orders Amlodipine Besylate [Norvasc -] 10 mg PO DAILY 10/18/16 Diclofenac Sodium/Misoprostol [Diclofenac-Misoprost 75-0.2 Tb] 1 each PO BID 01/22 Losartan/Hydrochlorothiazide [Losartan-Hctz 100-25 mg Tab] 1 tab PO DAILY Metoprolol Tartrate [Lopressor] 100 mg PO BID 10/18/16 Nitrofurantoin Monohyd/M-Cryst [Macrobid -] 100 mg PO BID 10/18/16 - Diagnosis (1) UTI (urinary tract infection) Status: Acute Qualifiers: Urinary tract infection type: acute cystitis Hematuria presence: without hematuria Qualified Code(s): N30.00 - Acute cystitis without hematuria (2) Cocaine dependence, uncomplicated Status: Chronic (3) Hypertension Status: Chronic Qualifiers: Hypertension type: essential hypertension Qualified Code(s): I10 - Essential (primary) hypertension (4) Nicotine dependence Status: Chronic Qualifiers: Nicotine product type: cigarettes Substance use status: uncomplicated Qualified Code(s): F17.210 - Nicotine dependence, cigarettes, uncomplicated (5) Opioid dependence with withdrawal Status: Acute (6) Asthma Status: Chronic (7) Hypokalemia Status: Acute - AMA Did Patient Leave Against Medical Advice: No
== END 2016-10-23 09:25 | disposition home or self-care (01) | DRG 773 ==
LOC: YASAS 11:02 → Y3N 12:30
PROVIDERS: ADMIT Internal Medicine; ATTEND Internal Medicine
PROC: HZ2ZZZZ Detoxification Services for Substance Abuse Treatment (ICD-10-PCS; principal; 2016-10-18)
DX: F11.23 Opioid dependence with withdrawal (principal); F14.20 Cocaine dependence, uncomplicated; F17.210 Nicotine dependence, cigarettes, uncomplicated; I10 Essential (primary) hypertension; N30.00 Acute cystitis without hematuria; J45.909 Unspecified asthma, uncomplicated; E87.6 Hypokalemia
CPT/HCPCS: 36415; 80053; 81003; 81015; 85027; 86593; 87389; 93005; 93010

== ENCOUNTER 2016-10-20 09:58 | Emergency (ER) | payer OTHER ==
--- NOTE | 2016-10-20 10:04 | PDOC ---
History of Present Illness - General History Source: Patient Exam Limitations: No Limitations - History of Present Illness Initial Comments: 10/20/16 11:11 56 y/o M with a PMHx of right inguinal hernia repair (2009), HTN presents to the ED from [facility] Detox with dysuria, hematuria, urinary frequency and pain at mesh site for about a year and a half. Patient rates the pain a 9/10. He reports heroin and crack alleviate the pain. Pain radiates down to his right scrotum. He believes the mesh repair may have broke. Patient is currently on Macrobid for a UTI. Denies fever, chills, nausea, vomiting, diarrhea, constipation. Denies chest pain, SOB. Denies flank pain. Patient is currently in detox for heroin and cocaine abuse. <Yadi Ashraf - Last Filed: 10/20/16 11:11> <Shanel Ramirez - Last Filed: 10/20/16 13:34> - General Stated Complaint: PAIN Time Seen by Provider: 10/20/16 10:03 Past History <Yadi Ashraf - Last Filed: 10/20/16 11:11> - Past Medical History Anemia: No Asthma: Yes Cancer: No Cardiac Disorders: No CVA: No COPD: No CHF: No Dementia: No Diabetes: No GI Disorders: No Disorders: Yes (UTI on medication) HTN: Yes Hypercholesterolemia: No Kidney Stones: No Liver Disease: No Suicide Attempt (Hx): No (denies) Seizures: No Thyroid Disease: No - Surgical History Abdominal Surgery: No Appendectomy: No Cardiac Surgery: No Cholecystectomy: No Lung Surgery: No Neurologic Surgery: No Orthopedic Surgery: (right inguinal hernia repair in 2009) - Reproductive History Testicular Surgery: No - Psycho/Social/Smoking Cessation Hx Anxiety: No Suicidal Ideation: No Smoking History: Current every day smoker Have you smoked in the past 12 months: Yes Number of Cigarettes Smoked Daily: 4 'Breaking Loose' booklet given: 10/18/16 Hx Alcohol Use: No Drug/Substance Use Hx: Yes Substance Use Type: Cocaine, Heroin Hx Substance Use Treatment: Yes (last detox 2007 [facility]) <Shanel Ramirez - Last Filed: 10/20/16 13:34> - Past Medical History Allergies/Adverse Reactions: Allergies Allergy/AdvReac Type Severity Reaction Status Date / Time No Known Allergies Allergy Verified 10/18/16 11:45 Home Medications: Ambulatory Orders Amlodipine Besylate [Norvasc -] 10 mg PO DAILY 10/18/16 Diclofenac Sodium/Misoprostol [Diclofenac-Misoprost 75-0.2 Tb] 1 each PO BID 01/22 Losartan/Hydrochlorothiazide [Losartan-Hctz 100-25 mg Tab] 1 tab PO DAILY Metoprolol Tartrate [Lopressor] 100 mg PO BID 10/18/16 Nitrofurantoin Monohyd/M-Cryst [Macrobid -] 100 mg PO BID 10/18/16 Review of Systems - Review of Systems Able to Perform ROS?: Yes Comments:: 10/20/16 11:11 GENERAL/CONSTITUTIONAL: No fever or chills. No weakness. HEAD, EYES, EARS, NOSE AND THROAT: No change in vision. No ear pain or discharge. No sore throat. CARDIOVASCULAR: No chest pain or shortness of breath. RESPIRATORY: No cough, wheezing, or hemoptysis. GASTROINTESTINAL: (+) right inguinal pain at mesh site. No nausea, vomiting, diarrhea or constipation. GENITOURINARY: (+) dysuria, frequency, hematuria. No flank pain. MUSCULOSKELETAL: No joint or muscle swelling or pain. No neck or back pain. SKIN: No rash NEUROLOGIC: No headache, vertigo, loss of consciousness, or change in strength/ sensation. ENDOCRINE: No increased thirst. No abnormal weight change. HEMATOLOGIC/LYMPHATIC: No anemia, easy bleeding, or history of blood clots. ALLERGIC/IMMUNOLOGIC: No hives or skin allergy. <Yadi Ashraf - Last Filed: 10/20/16 11:11> *Physical Exam - Vital Signs Last Vital Signs Temp Pulse Resp BP Pulse Ox 97.9 F 75 20 142/86 96 10/20/16 10:01 10/20/16 10:01 10/20/16 10:01 10/20/16 10:01 10/20/16 10:01 - Physical Exam Comments: 10/20/16 11:13 GENERAL: Awake, alert, and fully oriented, in no acute distress HEAD: No signs of trauma EYES: PERRLA, EOMI, sclera anicteric, conjunctiva clear ENT: Auricles normal inspection, hearing grossly normal, nares patent, oropharynx clear without exudates. Moist mucosa NECK: Normal ROM, supple, no lymphadenopathy, JVD, or masses LUNGS: Breath sounds equal, clear to auscultation bilaterally. No wheezes, and no crackles HEART: Regular rate and rhythm, normal S1 and S2, no murmurs, rubs or gallops ABDOMEN: Can feel mesh in right inguinal area, but no redness or warmth and nothing to reduce. Mild tenderness at the site. Suprapubic tenderness. Soft, normoactive bowel sounds. No guarding, no rebound. No CVA tenderness. EXTREMITIES: Normal range of motion, no edema. No clubbing or cyanosis. No cords, erythema, or tenderness NEUROLOGICAL: Cranial nerves II through XII grossly intact. Normal speech, normal gait SKIN: Warm, Dry, normal turgor, no rashes or lesions noted. : Normal scrotal and penile exam, no testicular tenderness. <Yadi Ashraf - Last Filed: 10/20/16 11:11> ED Treatment Course - LABORATORY CBC & Chemistry Diagram: 10/20/16 11:30 10/20/16 11:30 <Shanel Ramirez - Last Filed: 10/20/16 13:34> Medical Decision Making - Medical Decision Making 10/20/16 11:24 56yo male with hematuria/dysuria x 1.5 years and hx of R inguinal hernia repair with pain at site -normal bowel function, no signs/symptoms of strangulated or incarcerated inguinal hernia -normal testicular and scrotal exam -labs -ua -ct abd/pelvis for further eval of hematuria and dysuria - poss infected stone, renal mass, bladder mass -pt currently on macrobid at [facility] along with 2 days of being treated for cocaine and heroin use -ivf hydration -pain control 10/20/16 13:26 labs reviewed. No UTI. no hematuria. Pt ambulatory with a steady gait. Pt states he wants to go back to [facility]. Pt states he wants to sign out AMA. Discussed risks of signing out AMA. Pt verbalizes all understanding. Pt understands need for follow up and all reasons to return to the ED. Pt states he understands CT abd/pelvis was not performed and states he no longer wants to wait for imaging. Pt stable for d/c to home. <Shanel Ramirez - Last Filed: 10/20/16 13:34> *DC/Admit/Observation/Transfer - Attestations Scribe Attestion: 10/20/16 11:13 Documentation prepared by Yadi Ashraf, acting as medical physicist for Shanel Ramirez DO. <Yadi Ashraf - Last Filed: 10/20/16 11:11> - Discharge Dispostion Admit: No - Attestations Physician Attestion: 10/20/16 13:34 I, Dr. Shanel Ramirez DO, attest that this document has been prepared under my direction and personally reviewed by me in its entirety. I further attest, that it accurately reflects all work, treatment, procedures and medical decision -making performed by me. <Shanel Ramirez - Last Filed: 10/20/16 13:34> Diagnosis at time of Disposition: Groin pain - Discharge Dispostion Disposition: AGAINST MEDICAL ADVICE Condition at time of disposition: Unchanged/Unknown - Referrals Referrals: Marita Vasquez MD [Staff Physician] - - Patient Instructions Printed Discharge Instructions: DI for Abdominal Pain-Adult Additional Instructions: Please follow up with your PMD. Please return to the ED with any further complaints.
[2016-10-20 10:09] VITALS: BMI 34.7
[2016-10-20] MEDS ORDERED: KETOROLAC TROMETHAMINE 15 MG/ML VIAL IVPUSH ONE (11:07)
[2016-10-20] MEDS ORDERED: ACETAMINOPHEN 325 MG TABLET (FP) PO ONE (11:07)
[2016-10-20] MEDS ORDERED: SODIUM CHLORIDE 0.9% 1000 ML INFUS.BAG IV ONE (11:07)
[2016-10-20] MEDS ORDERED: KETOROLAC TROMETHAMINE 15 MG/ML VIAL ONE (11:20)
[2016-10-20] MEDS ORDERED: ACETAMINOPHEN 325 MG TABLET (FP) ONE (11:20)
[2016-10-20 11:40] LABS: BASOPHIL 2.2 % (0-2.0); MCHC 32.6 g/dl (32.0-35.9); MEAN CELL VOLUME 85.8 fl (80-96); MEAN PLT VOLUME 9.1 fl (7.5-11.1); NEUTROPHILS 33.5 % (42.8-82.8); PLATELET COUNT 234 K/MM3 (134-434); RDW 13.1 % (11.9-15.9); WHITE BLOOD COUNT 6.9 K/mm3 (4.0-10.0)
[2016-10-20 11:42] LABS: URINE APPEARANCE CLEAR; URINE BILIRUBIN NEGATIVE (NEGATIVE); URINE BLOOD NEGATIVE (NEGATIVE); URINE COLOR YELLOW; URINE GLUCOSE (UA) 1+ (NEGATIVE); URINE KETONE NEGATIVE (NEGATIVE); URINE LEUK ESTERASE NEGATIVE (NEGATIVE); URINE NITRITE NEGATIVE (NEGATIVE); URINE PROTEIN NEGATIVE (NEGATIVE); URINE UROBILINOGEN NEGATIVE mg/dL (0.2-1.0)
[2016-10-20 12:14] LABS: ALK PHOS 86 U/L (45-117); ANION GAP 6 (8-16); BILIRUBIN,TOTAL 0.6 mg/dL (0.2-1.0); CALCIUM 9.3 mg/dL (8.5-10.1); CO2 28 mmol/L (21-32); CREATININE 1.2 mg/dL (0.7-1.3); GLUCOSE,RANDOM 91 mg/dL (74-106); SGOT/AST 14 U/L (15-37); SGPT/ALT 23 U/L (12-78); TOT PROT 6.1 g/dl (6.4-8.2)
[2016-10-20 14:34] VITALS: BP 134/72; PULSE 66; TEMP 98.4
== END 2016-10-20 16:01 | disposition left against medical advice (07) ==
LOC: JER 09:58
PROC: 3E0333Z Introduction of Anti-inflammatory into Peripheral Vein, Percutaneous Approach (ICD-10-PCS; principal; 2016-10-20)
DX: R10.31 Right lower quadrant pain (principal); I10 Essential (primary) hypertension; J45.909 Unspecified asthma, uncomplicated; F17.210 Nicotine dependence, cigarettes, uncomplicated; F11.10 Opioid abuse, uncomplicated; F14.10 Cocaine abuse, uncomplicated
CPT/HCPCS: 36415; 80053; 81003; 83690; 83735; 85025; 99283-25